=== PATIENT | male | born 1955 | race Caucasian/White ===

== ENCOUNTER 2023-11-23 10:15 | Outpatient (CLI) | payer MEDICARE, BC, SELFPAY | END 2023-11-23 10:16 | disposition home or self-care (01) | PROVIDERS: PCP Family Medicine; Visit Provider Family Medicine | DX: Z13.1 Encounter for screening for diabetes mellitus (principal); Z12.5 Encounter for screening for malignant neoplasm of prostate; E78.2 Mixed hyperlipidemia | CPT/HCPCS: 80048; 80061; G0103 ==

== ENCOUNTER 2024-04-30 16:42 | Emergency (ER) | payer MEDICARE, BC, SELFPAY ==
[2024-04-30 16:53] VITALS: BP 113/70; PULSE 56; RESP 18; TEMP 37; O2SAT 97; BMI 27.5
--- NOTE | 2024-04-30 17:22 | ED.WOUNDLAC ---
HPI - Wound/Laceration General Time Seen by Provider: 17:23 Date Seen: 04/30/24 Chief Complaint: Laceration/Wound Stated Complaint: L arm lac Time Seen by Provider: 04/30/24 17:22 Source: patient, family and RN notes reviewed Mode of arrival: ambulatory Limitations: no limitations History of Present Illness HPI narrative: Frank is a very pleasant 69-year-old male who thinks his past tetanus is up-to-date who also has a history of dyslipidemia who comes to the emergency room for evaluation regarding laceration to the left wrist. Patient was noted to be taking down heavy metal Venetian blinds and they fell causing a cut to his left wrist. He is stable able to move his wrist and thumb without difficulty. He was worried about how deep this was. 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 I did offer gluing but he feels because of his activities he should suture this. Related Data Home Medications ?Medication ?Instructions ?Recorded ?Confirmed No Known Home Medications 06/23/22 11/23/23 Allergies Allergy/AdvReac Type Severity Reaction Status Date / Time midazolam AdvReac Mild Vomiting Verified 11/23/23 09:27 Review of Systems Status of ROS: Reports: 6 or more systems reviewed and unremarkable except as noted in History and below Narrative: Denies numbness or tingling in the extremities. PFSH PFSH Medical History Symptom of bladder outlet obstruction ?N32.0 - Bladder-neck obstruction (ICD-10) Right trigeminal neuralgia ?G50.0 - Trigeminal neuralgia (ICD-10) Surgical History History of open reduction and internal fixation (ORIF) procedure ?Z98.890 - Other specified postprocedural states (ICD-10) History of vasectomy (12/01/12) ?Z98.52 - Vasectomy status (ICD-10) Family History Other Diabetes Social History Smoking Status: Never smoker Little interest or pleasure in doing things: not at all Feeling down, depressed, or hopeless: not at all Exam Narrative: Exam Narrative: Alert and oriented. No acute distress. Examination of the left wrist shows a 2.3 cm laceration on the lateral dorsal part of the left lower forearm. This compromises epidermis and dermis. Partially compromises subcutaneous tissue but no underlying structures are visualized. No foreign bodies are noted. Patient has good extension of the thumb and of the wrist against resistance. Procedure: This area was cleansed with Shur-Clens. Anesthetized with lidocaine with epinephrine 1.5 mils. Obtained good wound anesthesia. Irrigated by our nursing staff. Four sutures of 5 0 Ethilon placed in interrupted fashion with good wound closure. Very small piece of near avulsed tissue is laid down within the laceration with good wound approximation as well. Const: Vital Signs, click to edit/add: Vital Signs - 24 hr 04/30/24 16:53 Temperature 98.6 F Pulse Rate [Right Pulse Oximeter] 56 L Respiratory Rate 18 Blood Pressure [Ri ght Upper Arm] 113/70 Pulse Oximetry 97 Oxygen Delivery Me thod Room Air Documenting provider has reviewed patient's vital signs: yes Course Vital Signs Vital signs: Initial Vital Signs Temperature 98.6 F 04/30/24 16:53 Temperature Source Temporal Artery Scan 04/30/24 16:53 Pulse Rate 56 L 04/30/24 16:53 Respiratory Rate 18 04/30/24 16:53 Blood Pressure 113/70 04/30/24 16:53 Blood Pressure Mean 84 04/30/24 16:53 Blood Pressure Position Sitting 04/30/24 16:53 Pulse Oximetry 97 04/30/24 16:53 Oxygen Delivery Method Room Air 04/30/24 16:53 Vital Signs Temperature 98.6 F 04/30/24 16:53 Pulse Rate 56 L 04/30/24 16:53 Respiratory Rate 18 04/30/24 16:53 Blood Pressure 113/70 04/30/24 16:53 Pulse Oximetry 97 04/30/24 16:53 Oxygen Delivery Method Room Air 04/30/24 16:53 Temperature 98.6 F 04/30/24 16:53 Pulse Rate 56 L 04/30/24 16:53 Respiratory Rate 18 04/30/24 16:53 Blood Pressure 113/70 04/30/24 16:53 Pulse Oximetry 97 04/30/24 16:53 Oxygen Delivery Method Room Air 04/30/24 16:53 MDM - Wound/Laceration MDM Narrative Medical decision making narrative: 1. Left arm laceration-suture removal in 10 days time. Monitor for signs and symptoms of infection. Limit excessive flexion extension at the wrist at least for 24 hours. Ibuprofen or Tylenol as needed for pain. 2. Disposition-home at this time. Return as needed. Note tetanus up-to-date 2023. Medical Records Attestation: I reviewed the patient's medical records. Discharge Plan Discharge Clinical Impression: Laceration of left wrist Qualifiers: Encounter type: initial encounter Qualified Code(s): S61.512A - Laceration without foreign body of left wrist, initial encounter Patient Disposition: Home, Self-Care Condition: Improved Additional Instructions: 1. Suture removal in 10 days time. Keep clean and dry. May shower but no soaking of the wrist such as swimming or in a tub. 2. Seek medical attention for signs and symptoms of infection 3. Return as needed. Ibuprofen or Tylenol may be used for discomfort. Prescriptions: No Action No Known Home Medications Follow Up/Referrals: Reyes Reyes MD [Primary Care Provider] - Stand Alone Forms: [employer] Info Instructions
== END 2024-04-30 18:07 | disposition home or self-care (01) ==
LOC: ED 17:38
PROVIDERS: Emergency Provider Family Medicine; PCP Family Medicine
DX: S61.512A Laceration without foreign body of left wrist, initial encounter (principal)
CPT/HCPCS: 12001; 99283; 99284

== ENCOUNTER 2024-06-15 09:56 | Outpatient (CLI) | payer MEDICARE, BC, SELFPAY ==
--- NOTE | 2024-06-15 10:15 | CRLHL7_ITS ---
For Patients: As a result of the 21st Century Cures Act, medical imaging exams and procedure reports are released immediately into your electronic medical record. You may view this report before your referring provider. If you have questions, please contact your health care provider. EXAM: MRI OF THE LEFT SHOULDER, WITHOUT CONTRAST CLINICAL INDICATION: Shoulder pain. PRIOR SURGERY: None reported. COMPARISON PLAIN FILMS: None available at time of interpretation. COMPARISON CROSS-SECTIONAL IMAGING STUDIES: None available at time of interpretation. TECHNICAL: Axial, sagittal oblique and coronal oblique T1, PD, PD FS and T2-weighted images. 1.5 Marisela MR scanner. Shoulder surface coil. FINDINGS: GLENOHUMERAL JOINT: Effusion/Cyst: Physiologic quantity of joint fluid. No synovitis. No paralabral or periarticular cyst or ganglion. Humeral Head Articular Cartilage: Mild grade 2 thinning particularly inferiorly. Glenoid Articular Cartilage: Grade 2 thinning diffusely. Shallow small subchondral cyst in the inferior glenoid margin. Loose Bodies: No appreciable loose bodies. Capsule: No convincing evidence of adhesive capsulitis or capsular injury. OSSEOUS STRUCTURES: No fracture, marrow edema or marrow replacement process. CORACOACROMIAL ARCH: Acromial Morphology: Type 2 acromial morphology. No abnormal lateral or anterior downward sloping of the acromion. No os acromiale. No significant subacromial spur. Lateral acromial thickness is 5 mm. Acromiohumeral Interval: The acromiohumeral interval is adequately patent. At its narrowest, the interval measures 6 mm. No abnormal thickening of the coracoacromial ligament. Coracohumeral Interval: The coracohumeral interval is normal. At its narrowest, the coracohumeral interval measures 8 mm. Coracoid index is 18 mm. ACROMIOCLAVICULAR JOINT REGION: AC Joint: Prominent arthrosis with subchondral cysts and edema and sclerosis around the undulating narrowed joint. No significant inferior osteophyte. No fracture or osteolysis. Ligaments: The coracoclavicular ligaments are intact. BURSAE: Subacromial-Subdeltoid: Small volume of fluid laterally. Subcoracoid: No abnormal bursal edema, thickening or bursal fluid. ROTATOR CUFF TENDONS AND MUSCLES AND DELTOID: Supraspinatus: Mild patchy tendinosis in the distal tendon. Shallow bursal tear mid foot plate. No high-grade tear. No muscle atrophy or edema. Infraspinatus: No tendinosis, tendon tearing, muscle atrophy or muscle edema. Teres Minor: No tendinosis, tendon tearing, muscle atrophy or muscle edema. Subscapularis: No tendinosis, tendon tearing, muscle atrophy or muscle edema. Deltoid: No muscle atrophy or edema. BICEPS TENDON, LONG HEAD: The long head of the biceps tendon is appropriately positioned within the bicipital groove without tendon subluxation or dislocation. The biceps melisa mechanism is intact. The biceps anchor appears grossly intact. There is no significant tendinosis or tendon tearing. GLENOID LABRUM: Within the limitations of non-arthrographic technique, the superior labrum and biceps-labral complex are intact. The anteroinferior labrum is intact without Bankart or Bankart-variant labral tear. The remainder of the labrum is similarly intact. OTHER FINDINGS: There is no abnormality within the suprascapular or spinoglenoid notches nor within the quadrilateral space. No axillary adenopathy or mass. IMPRESSION: 1. Moderately prominent AC DJD. 2. Mild subacromial/subdeltoid bursitis. 3. Mild glenohumeral osteoarthritis. 4. [id number] patchy tendinosis supraspinatus with shallow bursal tear at the mid foot plate. No high-grade partial or full-thickness tear. Dictated by Houston Chow MD @ 06/15/2024 12:57:33 PM (Electronically Signed)
== END 2024-06-15 09:57 | disposition home or self-care (01) ==
LOC: MRI 09:58
PROVIDERS: PCP Family Medicine; Visit Provider Physician Assistant
DX: M25.512 Pain in left shoulder (principal); M19.012 Primary osteoarthritis, left shoulder; M75.52 Bursitis of left shoulder; S41.012A Laceration without foreign body of left shoulder, initial encounter; S46.002A Unspecified injury of muscle(s) and tendon(s) of the rotator cuff of left shoulder, initial encounter
CPT/HCPCS: 73221

== ENCOUNTER 2025-01-17 14:45 | Outpatient (RCR) | payer MEDICARE, BC, SELFPAY | END 2025-03-01 13:53 | disposition home or self-care (01) | PROVIDERS: PCP Family Medicine; Visit Provider Orthopaedic Surgery | DX: S46.002D Unspecified injury of muscle(s) and tendon(s) of the rotator cuff of left shoulder, subsequent encounter (principal); M25.512 Pain in left shoulder; M25.812 Other specified joint disorders, left shoulder; Z51.89 Encounter for other specified aftercare | CPT/HCPCS: 97110; 97161 ==